=== PATIENT | male | born 1945 | race Caucasian/White ===

== ENCOUNTER 2022-09-18 08:52 | Day surgery (SDC) | payer MEDICARE, SELFPAY ==
--- NOTE | 2022-09-17 14:49 | P.CONAN_ITS ---
Documented by User: Anna Christie NP 09/17/22 14:49 HPI - Anesthesia Eval Consult details Narrative: 76yo M for Upper Endoscopy and Colonoscopy [facility] Past Medical History Medical History Barretts esophagus Basal cell carcinoma BPH (benign prostatic hyperplasia) Elevated cholesterol Surgical History Surgical History H/O bilateral inguinal hernia repair History of prostate surgery Hx of tonsillectomy Social History Social History Patient Tobacco Use Status: Former Tobacco user Are you DNR?: No Advance Directives: No Advance Directives Information Provided: Yes Nutrition Risks: No Nutritional Risk Meds Allergies Allergy/AdvReac Type Severity Reaction Status Date / Time No Known Allergies Allergy Verified 09/18/22 10:21 Home Medications Medication Instructions Recorded Confirmed Last Taken Type finasteride 5 mg tablet 5 mg PO DAILY 09/17/22 09/17/22 Unknown History omeprazole 20 mg capsule,delayed 20 mg PO QAM 09/17/22 09/17/22 Unknown History release simvastatin 40 mg tablet 40 mg PO BEDTIME 09/17/22 09/17/22 Unknown History tamsulosin 0.4 mg capsule 0.8 mg PO DAILY 09/17/22 09/17/22 Unknown History Exam Exam Date and Time: September 17, 2022 766 Assessment and Plan Assessment Anesthesia Assessment: Chart Reviewed Documented by User: Mercedes Wiley MD 09/18/22 12:01 [facility] Past Medical History Medical History Barretts esophagus Basal cell carcinoma BPH (benign prostatic hyperplasia) Elevated cholesterol Surgical History Surgical History H/O bilateral inguinal hernia repair History of prostate surgery Hx of tonsillectomy History of Problems with Anesthesia: No Social History Social History Patient Tobacco Use Status: Former Tobacco user Are you DNR?: No Advance Directives: No Advance Directives Information Provided: Yes Nutrition Risks: No Nutritional Risk Meds Allergies Allergy/AdvReac Type Severity Reaction Status Date / Time No Known Allergies Allergy Verified 09/18/22 10:21 Home Medications Medication Instructions Recorded Confirmed Last Taken Type finasteride 5 mg tablet 5 mg PO DAILY 09/17/22 09/17/22 Unknown History omeprazole 20 mg capsule,delayed 20 mg PO QAM 09/17/22 09/17/22 Unknown History release simvastatin 40 mg tablet 40 mg PO BEDTIME 09/17/22 09/17/22 Unknown History tamsulosin 0.4 mg capsule 0.8 mg PO DAILY 09/17/22 09/17/22 Unknown History Exam Airway Mallampati Class: III TM Dist: >3cm Neck ROM: Full Loose/Missing/Broken Teeth: Yes and Upper Heart: RRR Lungs: CTA Assessment and Plan Assessment Anesthesia Assessment: Anesthesia Plan Discussed Final Anesthetic Review History of Problems with Anesthesia: No NPO: Yes ASA Class: II Final Preanesthetic Review: Meds/Allgs Chart Reviewed, Consent Obtained/Reviewed and Anes Risks/Benef Reviewed Patient Risk: Low Procedure Risk: Intermediate Anesthetic Plan Anesthetic Plan: MAC: Disposition: Standard PACU
[2022-09-18 06:16] VITALS: BMI 28.2
[2022-09-18] MEDS: Lactated Ringers 1,000 ML 100 ML IVCONT (10:08)
[2022-09-18 10:20] VITALS: BP 153/99; PULSE 74; RESP 18; TEMP 36.7; O2SAT 99
--- NOTE | 2022-09-18 11:37 | P.HPSUR_ITS ---
Pre-Procedural Eval Section A Date of Service: 09/18/22 Section B Chief Complaint: Santillan's esophagus without dysplasia,screening Details of Present Illness: see H&P no changes Relevant Family History (Specify if Yes): No Relevant Social History: None Present Medications: see Short Stay Collaborative assessment Medical History: No relevant PMH History of Previous Operations: No relevant previous surgery Allergies: Allergies Allergy/AdvReac Type Severity Reaction Status Date / Time No Known Allergies Allergy Verified 09/18/22 10:21 Review of Systems Sugical H&P ROS: Negative: Constitution, Cardiovascular, Respiratory, Neurologi loretta, Psychiatric, Hem-Onc, Allergic/Immunologic, Gastrointestinal, Genitourinary, Musculoskeletal, Integumentary, Endocrine and Eyes/Ears/Nose/Throat Exam Surgical H&P Exam: Normal: HEENT, Normal: Heart, Normal: Lungs, Normal: Extremities, Normal: Abdomen, Normal: Skin and Normal: Neurological Plan Diagnosis/Plan: Unchanged I have reviewed the history and physical and performed a pertinent physical examination on my patient. No changes have occurred unless specified. Time Spent With Patient Time: Total time managing care of this patient today ____ minutes.
--- NOTE | 2022-09-18 12:31 | P.BOP_ITS ---
Brief Operative Note Date of Service: 09/18/22 Pre-op diagnosis: barretts screening Post-op diagnosis: same Procedure: egd colonoscopy Surgeon: Kristopher Hong Anesthesia: MAC Was an Economics Consultant used for this Procedure?: No Estimated blood loss (mL): 5 Pathology: other Condition: stable Disposition: PACU
[2022-09-18 12:35] VITALS: BP 122/61; PULSE 75; RESP 20; TEMP 36.1; O2SAT 97
[2022-09-18 12:50] VITALS: BP 134/74; PULSE 70; RESP 20; TEMP 36.2; O2SAT 95
--- NOTE | 2022-09-18 22:56 | OP_ITS ---
DATE OF SERVICE: 09/18/2022 SURGEON: Kristopher Hong MD INDICATIONS: Santillan's esophagus and colon cancer screening. PREOPERATIVE DIAGNOSIS: POSTOPERATIVE DIAGNOSIS: PROCEDURE PERFORMED: Upper endoscopy with biopsy, colonoscopy to the terminal ileum with snare polypectomy. ESTIMATED BLOOD LOSS: COMPLICATIONS: ANESTHESIA: Monitored anesthesia care. ASSISTANTS: SPECIMENS: DESCRIPTION OF PROCEDURE: A history and physical was performed. The risks and benefits of the procedure were explained to the patient. Informed consent was obtained. The patient was placed in the left lateral decubitus position. The Olympus video gastroscope was introduced into the esophagus, stomach, and duodenum. Examination was performed. The scope was removed and he was repositioned for colonoscopy. A digital rectal exam was performed and was found to be normal. The Olympus pediatric video colonoscope was introduced into the rectum and advanced to the cecum without difficulty. The cecum was identified by transillumination, palpation, and identification of ileocecal valve. Examination was performed and the scope was removed. He tolerated the procedure well and was turned to recovery area in stable condition. FINDINGS: Upper endoscopy. 1. Esophagus: The esophagus showed a less than 2 cm segment of Santillan's esophagus with no raised lesions or ulcerated areas. There was no associated esophagitis. There was a small hiatal hernia. Biopsies were obtained at 40 cm and at 39 cm. 2. Stomach: The stomach was normal. 3. Duodenum: The bulb and 2nd portion were normal. Colonoscopy: The terminal ileum was examined and appeared normal. There were 4 polyps removed, all were removed with a snare and recovered via suction. In the cecum was a flat 15 x 10 mm polyp, which was removed piecemeal and recovered via suction. Other polyps at 65 cm, 30 cm, and 20 cm were removed with a hot snare. All measured less than 10 mm. There was mild sigmoid diverticulosis. Retroflexed examination showed some internal hemorrhoids. IMPRESSION: 1. Santillan's esophagus. 2. Colon polyps. RECOMMENDATIONS: Follow up the biopsy results. MD NEFTALI [place]/W[facility] / [id number]
== END 2022-09-18 13:41 | disposition home or self-care (01) ==
PROVIDERS: PCP Internal Medicine; Visit Provider Internal Medicine Gastroenterology
PROC: (CPT 45385; principal; 2022-09-18 10:30)
DX: Z12.11 Encounter for screening for malignant neoplasm of colon (principal); D12.0 Benign neoplasm of cecum; D12.4 Benign neoplasm of descending colon; D12.5 Benign neoplasm of sigmoid colon; K57.30 Diverticulosis of large intestine without perforation or abscess without bleeding; K64.8 Other hemorrhoids; K22.70 Barrett's esophagus without dysplasia; K44.9 Diaphragmatic hernia without obstruction or gangrene; E78.5 Hyperlipidemia, unspecified; N40.0 Benign prostatic hyperplasia without lower urinary tract symptoms; Z86.010 Personal history of colon polyps; Z85.828 Personal history of other malignant neoplasm of skin; Z87.891 Personal history of nicotine dependence; Z79.899 Other long term (current) drug therapy
CPT/HCPCS: 45385; 43239; 88305